=== PATIENT | female | born 1975 | race Caucasian/White ===

== ENCOUNTER 2022-07-18 13:51 | Outpatient (CLI) | payer BC | END 2022-07-18 13:52 | disposition home or self-care (01) | LOC: CSHMAMMO 13:51 | PROVIDERS: ATTEND Obstetrics & Gynecology | DX: R92.8 Other abnormal and inconclusive findings on diagnostic imaging of breast (principal) | CPT/HCPCS: G0279 ==

== ENCOUNTER 2025-03-04 07:42 | Day surgery (SDC) | payer BC ==
[2025-03-02 11:55] VITALS: BMI 21.9
[2025-03-02 12:28] LABS: Hematocrit 40.7 % (34.9-44.5); Hemoglobin 13.2 g/dL (12.0-15.5); Mean Corpuscular Hemoglobin 30.6 pg (27.0-33.0); Mean Corpuscular Volume 94.4 fL (81.6-98.3); Platelet Count 276 10x3/uL (150-450); Red Blood Cell (RBC) Count 4.31 10x6/uL (3.90-5.03); White Blood Cell (WBC) Count 7.27 10x3/uL (3.5-10.5)
[2025-03-02 12:47] LABS: BHCG - Serum Negative (NEGATIVE); Pregs Control Background? CLEAR/WHITE (CLR/WHITE); Pregs Control Bar Appear? YES (CONTROL BAR)
[2025-03-04] MEDS ORDERED: Famotidine/PF 20 mg/2ml Vial ONE (07:59)
[2025-03-04] MEDS ORDERED: Gabapentin 300 MG CAP ONE (07:59)
[2025-03-04] MEDS ORDERED: metroNIDAZOLE 500 MG (100 mL) BAG ONE (07:59)
[2025-03-04] MEDS ORDERED: Lidocaine 2% PF 100 mg/5 ml Syringe ONE (08:22)
[2025-03-04] MEDS ORDERED: SUGAMMADEX SODIUM 200 MG/2 ML VIAL ONE (08:22)
[2025-03-04] MEDS ORDERED: PROPOFOL 20 ML ONE (08:22)
[2025-03-04] MEDS ORDERED: Ondansetron PF 4 MG/2 ML Vial ONE (08:22)
[2025-03-04] MEDS ORDERED: Ketorolac Tromethamine 30 MG (1 mL) VIAL ONE (08:22)
[2025-03-04] MEDS ORDERED: Rocuronium Bromide 10 MG/ML (10ML VIAL) ONE (08:23)
[2025-03-04] MEDS ORDERED: HYDROmorphone 0.5 MG/0.5 ML SYRINGE ONE (08:58)
[2025-03-04] MEDS ORDERED: Bupivacaine HCl 0.5%/Epinephrine 1:200,000/PF 30 ml Vial ONE (09:01)
[2025-03-04] MEDS ORDERED: CEFAZOLIN 2 GM VIAL ONE (09:01)
[2025-03-04] MEDS ORDERED: HYDROcodone/Acetaminophen 5/325 mg Tablet ONE (13:03)
== END 2025-03-04 16:00 | disposition home or self-care (01) ==
LOC: CSHSDC 07:42
PROVIDERS: ATTEND Obstetrics & Gynecology
PROC: 0UT74ZZ Resection of Bilateral Fallopian Tubes, Percutaneous Endoscopic Approach (ICD-10-PCS; principal; 2025-03-04)
PROC: 0UT94ZZ Resection of Uterus, Percutaneous Endoscopic Approach (ICD-10-PCS; principal; 2025-03-04)
DX: D25.1 Intramural leiomyoma of uterus (principal); D25.0 Submucous leiomyoma of uterus; N87.9 Dysplasia of cervix uteri, unspecified; N83.8 Other noninflammatory disorders of ovary, fallopian tube and broad ligament; N70.11 Chronic salpingitis
CPT/HCPCS: 84703; 85027; 86850; 86900; 86901; 88307; J1171; J1308; J1885; J2003; J2250; J2405; J2704; J3010; S2900